=== PATIENT | male | born 1985 | race Two or more races ===

== ENCOUNTER 2021-01-10 13:47 | Outpatient (RCR) | payer MEDICARE, SELFPAY ==
--- NOTE | 2021-01-12 15:38 | MHC.PT.EP ---
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 Due to the pandemic he has not been as mobile and has been experiencing an increase in pain, decrease in function, and musculoskeletal impairments. pt presents to physical therapy with pain, decreased range of motion, decreased strength, impaired functional mobility, impaired postural awareness, and gait deviations. pt is a good candidate for skilled PT due to age, potential remediation of impairments, typical disease/condition progression and prognosis, comorbidities, and motivation. pt would benefit from tailored strengthening and stretching exercise program, functional training, gait training, postural re-training, neuromuscular re-education, modalities as needed for pain, and equipment safety demonstration. Frequency and Duration: The patient will be seen 2x/wk for 6 wks Short Term Goals: pt will be mod I w/ HEP to promote self-management of condition. pt will participate in standing trial to determine baseline standing endurance w/ LRAD. Ballet Master/Mistress Goals: pt will improve B hip flexion strength by 1 MMT grade to facilitate ease in supine to sit transfer w/ less UE assist to L LE. pt will report a statistically significant improvement in self-reported outcome measure, LEFI, to promote return to PLOF. Treatment Plan: Modalities to reduce pain, spasms and effusion. Manual therapy to restore motion and function. Therapeutic exercise to improve strength and flexibility. Neuromuscular re-education for posture and balance. Therapeutic activities to return to functional activities of daily living. Electronically signed by: Shikha Chance PT, DPT Please sign and return to therapist. Thank you for your referral.
--- NOTE | 2021-01-31 15:27 | MHC.PT.DC ---
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 Per [facility] Core Therapy policy, which the patient was aware of and signed, he is discharged from this physical therapy plan of care. Electronically signed by: Shikha Chance PT, DPT Please sign and return to therapist. Thank you for your referral.
== END 2021-01-31 15:28 | disposition other institution (70) ==
LOC: HO.PT 13:47
PROVIDERS: PCP Internal Medicine; Visit Provider Psychiatry & Neurology Neurology
DX: G82.20 Paraplegia, unspecified (principal)
CPT/HCPCS: 97110; 97162

== ENCOUNTER 2021-07-23 08:13 | Emergency (ER) | payer MEDICARE, SELFPAY ==
[2021-07-23 08:16] VITALS: BP 147/87; PULSE 107; RESP 18; TEMP 36.8; O2SAT 99; BMI 45.9
--- NOTE | 2021-07-23 08:42 | ED.EAR ---
HPI - Ear Problem General Chief complaint: Ear Problems Stated complaint: lt ear pain Time Seen by Provider: 07/23/21 08:28 Source: patient Mode of arrival: ambulatory Limitations: no limitations History of Present Illness Complaint: ear pain Location: left ear Duration: constant Severity: moderate Relieving factors: nothing Related Data Previous Rx's Medication Instructions Recorded amoxicillin 875 mg-potassium 1 tab PO Q12H #20 tab 07/23/21 clavulanate 125 mg tablet (Augmentin) oxycodone 5 mg capsule 5 mg PO Q8H PRN #12 cap 07/23/21 Allergies Allergy/AdvReac Type Severity Reaction Status Date / Time SHELLFISH Allergy Severe ANAPHYLAXIS Uncoded 06/17/20 17:10 Review of Systems Review of Systems: Yes all other systems are reviewed and are negative Constitutional: Constitutional: Reports no additional constitutional complaints Cardiovascular: Cardiovascular: Reports no additional cardiovascular complaints Respiratory: Respiratory: Reports no additional respiratory complaints Neurologic: Reports system reviewed and no additional complaints, except as documented Endocrine: Endocrine: Reports no additional endocrine complaints PMFSH Past Medical History Attestation statement: The following information was validated with the patient. Source: unable to obtain Social History Social History Advance Directives: No Physical Exam Vital Signs: Vital Signs: Last Vital Signs Temp 98.2 F 07/23/21 08:16 Pulse 107 H 07/23/21 08:16 Resp 18 07/23/21 08:16 BP 147/87 H 07/23/21 08:16 Pulse Ox 99 07/23/21 08:16 Body Mass Index 45.9 Const: General: cooperative, comfortable, no acute distress, well developed and awake Nutritional Appearance: well nourished Orientation/consciousness: patient oriented x3 HENMT: Head: Yes normal to inspection Ears: TM abnormal (Left TM red ,small perforation drum,minimall drainage) Face and sinus: Yes normal facial exam Mouth: Normal oral and palatal mucosa present Teeth and gingiva: dentition normal Neck: Neck: Yes normal visual inspection, Yes full ROM and Yes no lymphadenopathy Thyroid: Thyroid normal Carotids: normal carotid upstroke Lymphatic: no lymphadenopathy noted Chest: Chest palpation & inspection: normal inspection of the chest Resp: Effort & Inspection: normal respiratory effort Auscultation: clear to auscultation bilaterally Cardio: Jugular venous distension: no JVD Rate: regular rate Rhythm: regular rhythm GI: Inspection: Yes normal to inspection Palpation (GI): Soft to palpation, not firm and nontender Neuro: General: patient oriented x3 Discharge Plan Discharge Clinical Impression: Otitis media, Ear drum perforation Patient Disposition: Home, Self-Care Instructions: Ear Infection (ED) Additional Instructions: Follow-up with ear nose throat docto call On Sunday, return if you worse fever chills any concern Prescriptions: New amoxicillin-pot clavulanate [Augmentin] 875-125 mg tablet 1 tab PO Q12H Qty: 20 RF: 0 oxycodone 5 mg capsule 5 mg PO Q8H PRN (Reason: pain) Qty: 12 RF: 0 Referrals: Alfonso Nelson [Physician] - 2 days Interventions: ED Discharge Assessment Last Done: 07/23/21 09:28 Discharge Date/Time: 07/23/21 09:29
[2021-07-23] MEDS: Amoxicillin/Potassium Clav 875 MG TABLET PO (08:53)
[2021-07-23] MEDS: oxyCODONE HCl Immed Release 5 MG TABLET PO (08:53)
== END 2021-07-23 09:29 | disposition home or self-care (01) ==
PROVIDERS: Emergency Provider Emergency Medicine; PCP Internal Medicine
DX: H60.93 Unspecified otitis externa, bilateral (principal); H72.93 Unspecified perforation of tympanic membrane, bilateral; H92.02 Otalgia, left ear; Z79.899 Other long term (current) drug therapy
CPT/HCPCS: 99283

== ENCOUNTER 2023-03-27 09:46 | Emergency (ER) | payer MEDICARE, SELFPAY ==
--- NOTE | ~2023-03-27 | XR_ITS ---
EXAMINATION: XR FOOT, RIGHT CLINICAL INFORMATION: Swelling. Infection. COMPARISON: None available. TECHNIQUE: AP, lateral, and oblique views of the right foot. FINDINGS: The bones are osteopenic. No fracture or dislocation. No x-ray evidence of osteomyelitis. Mild degenerative changes at the first MTP joint with joint space narrowing. Soft tissue swelling of the midfoot. No abnormal air collection or soft tissue foreign body seen. Small calcaneal spur at the Achilles tendon insertion. XR/XR foot RT 2V IMPRESSION: Soft tissue swelling of the midfoot. No evidence of osteomyelitis.
--- NOTE | ~2023-03-27 | US_ITS ---
EXAMINATION: US VENOUS ULTRASOUND WITH DOPPLER LOWER EXTREMITY, RIGHT CLINICAL INFORMATION: Right leg swelling COMPARISON: 05/01/2018 TECHNIQUE: Ultrasound of the deep veins is performed from the hip to the calf with compression sonography and color and pulse Doppler assessment. Spectral analysis with color-flow imaging is performed. FINDINGS: There is normal venous compression and respiratory variation and augmented flow. The visualized common femoral vein, superficial femoral vein, profunda femoral vein, popliteal vein, posterior tibial vein show no evidence of deep venous thrombosis. Peroneal vein was not visualized. If the patient's symptoms persist, followup ultrasound in 5 days 7 days might be of value to exclude proximal propagation from a non-visualized calf vein. There is no significant popliteal fossa cyst. Enlarged, cortically thickened lymph nodes are seen in the right proximal thigh/groin, largest measuring 4.4 x 1.2 x 2.3 cm. US/US venous duplex LE RT IMPRESSION: No DVT demonstrated in the right lower extremity. Enlarged right groin lymph nodes, representing interval development from 2018. Follow-up as clinically indicated.
--- NOTE | ~2023-03-27 | XR_ITS ---
EXAMINATION: XR ANKLE, RIGHT CLINICAL INFORMATION: Right ankle swelling. COMPARISON: None available. TECHNIQUE: AP, lateral, and mortise views of the right ankle. FINDINGS: A lateral view was not obtained. The ankle joint and mortise appear intact. There is no overt fracture. Moderate soft tissue swelling is seen. XR/XR ankle RT 2V IMPRESSION: Limited study showing moderate soft tissue swelling without overt fracture.
[2023-03-27 09:51] VITALS: BP 158/91; PULSE 100; RESP 19; TEMP 36.6; O2SAT 94; BMI 31.0
[2023-03-27 10:06] LABS: MANUAL DIFF FLAG NO
[2023-03-27 10:07] LABS: Hematocrit 43.6 % (42.0-52.0); Hemoglobin 13.6 g/dl (14.0-18.0); Mean Corpuscular HGB Conc 31.2 g/dl (31.0-36.0); Mean Corpuscular Hemoglobin 27.3 pg (27.0-33.0); Mean Corpuscular Volume 87.4 fL (80.0-98.0); Mean Platelet Volume 11.4 fL (9.4-12.4); Platelet Count 255 X10*3/uL (160-400); Red Blood Count 4.99 X10*6/uL (4.60-5.80); Red Cell Distribution Width 14.5 % (11.0-16.0); White Blood Count 10.2 X10*3/uL (4.8-10.8)
[2023-03-27 10:08] LABS: Basophils Percent Auto 0.4 % (0-2); Eosinophils Absolute Auto 0.1 X10*3/uL (0.0-0.4); Eosinophils Percent Auto 1.1 % (0-4); Imm Gran Abs Auto 0.04 X10*3/uL (0.00-0.03); Imm Gran Pct Auto 0.4 % (0.0-0.4); Lymphocytes Absolute Auto 2.6 X10*3/uL (1.2-4.9); Lymphocytes Percent Auto 25.6 % (20-40); Monocytes Absolute Auto 0.6 X10*3/uL (0.1-1.2); Monocytes Percent Auto 5.6 % (2-11); Neutrophils Absolute Auto 6.8 x10*3/uL (2.0-8.3); Neutrophils Percent Auto 66.9 % (45-73)
[2023-03-27 10:37] LABS: Anion Gap 13 (12-20); Blood Urea Nitrogen 8 mg/dL (9-16); Calcium 9.3 mg/dL (8.4-10.2); Carbon Dioxide 25 mmol/L (22-29); Chloride 105 mmol/L (96-108); Creatinine Clr Calc Pharmacy 143.3; Estimated Glomerular Filt Rate > 60; Glucose Random 159 mg/dL (60-115); Potassium 4.1 mmol/L (3.3-5.1); Sodium 139 mmol/L (135-145)
--- NOTE | 2023-03-27 11:08 | ED.GENADULT ---
HPI - General Adult General Chief complaint: Wound/Laceration Stated complaint: R Foot Injury 4 Days Ago Time Seen by Provider: 03/27/23 12:56 Source: patient Mode of arrival: wheelchair Limitations: no limitations History of Present Illness HPI narrative: Patient Comes to the emergency room complaining of right foot pain and swelling. Patient states that approximately 4 days ago, patient accidentally hit his right foot with a door. Patient is paraplegic and has no sensation. Patient states that he noticed erythema on the dorsum of the foot 3 days ago, has been applying [id number] triple antibiotic, but the erythema keep spreading. Patient denies fever chills. Related Data Previous Rx's Medication Instructions Recorded amoxicillin 875 mg-potassium 1 tab PO Q12H #20 tabs 07/23/21 clavulanate 125 mg tablet (Augmentin) oxycodone 5 mg capsule 5 mg PO Q8H PRN pain #12 caps 07/23/21 cephalexin 500 mg capsule 500 mg PO BID #19 caps 03/27/23 doxycycline hyclate 100 mg capsule 100 mg PO BID #19 caps 03/27/23 Allergies Allergy/AdvReac Type Severity Reaction Status Date / Time SHELLFISH Allergy Severe ANAPHYLAXIS Uncoded 03/27/23 09:51 Review of Systems Review of Systems: Constitutional : No Weight loss, No Fever, No Chills, No Night Sweats, No Fatigue, No Malaise ENT/Mouth : No Hearing loss, No Ear Pain, No Nasal Congestion, No Sinus Pain, No Hoarseness, No sore throat, No Rhinorrhea, No Swallowing Difficulty Eyes: No Eye Pain, No Swelling, No Redness, No Foreign Body, No Discharge, No Vision Changes Cardiovascular : No Chest Pain, No SOB, No Dyspnea on Exertion, No Orthopnea, No Edema, No Palpitations Respiratory : No Cough, No Sputum, No Wheezing, No Smoke Exposure, No Dyspnea Gastrointestinal : No Nausea, No Vomiting, No Diarrhea, No Constipation, No abdominal Pain, No Hematochezia, No Melena Genitourinary : no irregular bleeding, No Dysuria, No Urinary Frequency, No Hematuria, No Urinary Incontinence, No Urgency, No Flank Pain, No Urinary Flow Changes, No Hesitancy Musculoskeletal : Paraplegic, at baseline Skin : Erythema and swelling on the dorsum of the foot on the right Neuro : No Weakness, No Numbness, No Paresthesias, No Loss of Consciousness, No Dizziness, No Headache Psych : No Anxiety/Panic, No Depression, No SI/HI/AH/VH, No Social Issues, Heme/Lymph: No Bruising, No Bleeding,No Lymphadenopathy Endocrine : No Polyuria, No Polydipsia, No Temperature Intolerance PMFSH Past Medical History Medical History Hyperlipidemia Hypertension Social History Social History Alcohol intake: never Smoked in Last 30 Days: No Use of substances other than those prescribed or required for medical reasons: Yes Substance Use Type: Marijuana Advance Directives: No Physical Exam ED Vital Signs: Vital Signs - 24 hr 03/27/23 09:51 03/27/23 11:47 03/27/23 12:00 Temperature 98 F 97.7 F 98.0 F Pulse Rate 100 96 84 Respiratory Rate 19 20 16 Blood Pressure 158/91 H 148/84 H 136/78 Pulse Oximetry 94 93 95 Oxygen Delivery Method Room Air Room Air Room Air BMI result Body Mass Index 31.0 Const Other: Appearance: Alert. Oriented X3. No acute distress. Eyes: Pupils equal, round and reactive to light. ENT: Pharynx normal. Neck: Normal inspection. Neck supple. No lymph nodes noted. No crepitus CVS: Normal heart rate and rhythm. Pulses normal. Normal S1 and S2 Respiratory: No respiratory distress. Breath sounds normal. No Wheezing. No rales Abdomen: Soft and nontender. No rigidity. No distention. Skin: Skin warm and dry. Patient has a 10 cm x 10 cm erythematous patch, draining serosanguineous fluid, surrounding erythema Extremities: No lower extremity edema. No Lacerations. No Rash Neuro: Oriented X 3. No motor deficit. No sensory deficit. Moving all extremities. No slurred speech. CN 2 through 12 grossly intact Psych: calm, cooperative, normal affect Course Course Course Narrative: This is an RME: Additional HPI, ROS, PE not included below will be deferred to primary provider. Patient is a 37-year-old male with history of paraplegia presenting with right lower extremity swelling, right foot wound after hitting his foot on the door at home four days ago. Unsure when drainage began. Denies fevers. Plan: Ordered labs including blood cultures, lactic, x-ray foot and ankle, RLE ultrasound. Medications Administered Discontinued Medications Generic Name Dose Route Start Last Admin Trade Name Anam PRN Reason Stop Dose Admin Cephalexin HCl 500 mg 03/27/23 13:20 03/27/23 13:54 Cephalexin 500 Mg Capsule PO 03/27/23 13:21 500 mg ONCE ONE Administration Doxycycline Monohydrate 100 mg 03/27/23 13:20 03/27/23 13:54 Doxycycline Monohydrate 100 Mg Capsule PO 03/27/23 13:21 100 mg ONCE ONE Administration Medical Decision Making Medical Decision Making [facility] Narrative: -patient's white blood cell count and lactic acid within normal limits, no fever, sepsis not suspected. -patient given p.o. cephalexin and doxycycline -ultrasound reports of the right lower extremity pending -patient's ultrasound is negative for DVT, patient has cellulitis. Patient will try p.o. antibiotics, instructed that if the skin infection gets worse, to return to the emergency room. Patient will also follow-up with the wound clinic Differential Diagnosis Differential Diagnoses: The differential diagnosis associated with the presentation includes (Cellulitis, DVT, chronic wounds) Lab Data [facility] Lab Attestation statement: I reviewed the patient's lab results. 03/27/23 10:02 03/27/23 10:02 Labs: Lab Results 03/27/23 03/27/23 03/27/23 Range/Units 10:02 10:02 11:16 WBC 10.2 (4.8-10.8) X10*3/uL RBC 4.99 (4.60-5.80) X10*6/uL Hgb 13.6 L (14.0-18.0) g/dl Hct 43.6 (42.0-52.0) % MCV 87.4 (80.0-98.0) fL MCH 27.3 (27.0-33.0) pg MCHC 31.2 (31.0-36.0) g/dl RDW 14.5 (11.0-16.0) % Plt Count 255 (160-400) X10*3/uL MPV 11.4 (9.4-12.4) fL Immature Gran % (Auto) 0.4 (0.0-0.4) % Neut % (Auto) 66.9 (45-73) % Lymph % (Auto) 25.6 (20-40) % [place] % (Auto) 5.6 (2-11) % Eos % (Auto) 1.1 (0-4) % Baso % (Auto) 0.4 (0-2) % Lymph # (Auto) 2.6 (1.2-4.9) X10*3/uL [place] # (Auto) 0.6 (0.1-1.2) X10*3/uL Eos # (Auto) 0.1 (0.0-0.4) X10*3/uL Baso # (Auto) 0.0 (0.0-0.2) X10*3/uL Abs Immat Gran (auto) 0.04 H (0.00-0.03) X10*3/uL Absolute Neuts (auto) 6.8 (2.0-8.3) x10*3/uL Absolute Nucleated RBC 0.000 (0.0-0.012) X10*3/uL Nucleated RBC % (auto) 0.0 (0.0-0.2) /100WBC Sodium 139 (135-145) mmol/L Potassium 4.1 (3.3-5.1) mmol/L Chloride 105 (96-108) mmol/L Carbon Dioxide 25 (22-29) mmol/L Anion Gap 13 (12-20) BUN 8 L (9-16) mg/dL Creatinine 0.82 (0.5-1.4) mg/dL Estim Creat Clear Calc 143.3 Estimated GFR > 60 Random Glucose 159 H (60-115) mg/dL Lactic Acid 1.5 (0.5-2.0) mmol/L Calcium 9.3 (8.4-10.2) mg/dL B-Natriuretic Peptide (<100) pg/mL 03/27/23 Range/Units 11:16 WBC (4.8-10.8) X10*3/uL RBC (4.60-5.80) X10*6/uL Hgb (14.0-18.0) g/dl Hct (42.0-52.0) % MCV (80.0-98.0) fL MCH (27.0-33.0) pg MCHC (31.0-36.0) g/dl RDW (11.0-16.0) % Plt Count (160-400) X10*3/uL MPV (9.4-12.4) fL Immature Gran % (Auto) (0.0-0.4) % Neut % (Auto) (45-73) % Lymph % (Auto) (20-40) % [place] % (Auto) (2-11) % Eos % (Auto) (0-4) % Baso % (Auto) (0-2) % Lymph # (Auto) (1.2-4.9) X10*3/uL [place] # (Auto) (0.1-1.2) X10*3/uL Eos # (Auto) (0.0-0.4) X10*3/uL Baso # (Auto) (0.0-0.2) X10*3/uL Abs Immat Gran (auto) (0.00-0.03) X10*3/uL Absolute Neuts (auto) (2.0-8.3) x10*3/uL Absolute Nucleated RBC (0.0-0.012) X10*3/uL Nucleated RBC % (auto) (0.0-0.2) /100WBC Sodium (135-145) mmol/L Potassium (3.3-5.1) mmol/L Chloride (96-108) mmol/L Carbon Dioxide (22-29) mmol/L Anion Gap (12-20) BUN (9-16) mg/dL Creatinine (0.5-1.4) mg/dL Estim Creat Clear Calc Estimated GFR Random Glucose (60-115) mg/dL Lactic Acid (0.5-2.0) mmol/L Calcium (8.4-10.2) mg/dL B-Natriuretic Peptide < 10 (<100) pg/mL Independent Interpretation I performed an independent interpretation of an: Ultrasound Interpretation: My interpretation of duplex venous ultrasound of right lower extremity: No DVT Radiology Impression Discussion of test interpretation with radiology: I have reviewed the radiologist's reading. Radiologist Impression: FINDINGS: There is normal venous compression and respiratory variation and augmented flow. The visualized common femoral vein, superficial femoral vein, profunda femoral vein, popliteal vein, posterior tibial vein show no evidence of deep venous thrombosis.? Peroneal vein was not visualized. If the patient's symptoms persist, followup ultrasound in 5 days 7 days might be of value to exclude proximal propagation from a non-visualized calf vein. There is no significant popliteal fossa cyst. Enlarged, cortically thickened lymph nodes are seen in the right proximal thigh/groin, largest measuring 4.4 x 1.2 x 2.3 cm. US/US venous duplex LE RT IMPRESSION: No DVT demonstrated in the right lower extremity. Enlarged right groin lymph nodes, representing interval development from 2018. Follow-up as clinically indicated. Discharge Plan Discharge Clinical Impression: Cellulitis Patient Disposition: Home, Self-Care Instructions: Cellulitis (ED) Additional Instructions: Please follow-up with your primary care physician tomorrow. If you have any worsening or new symptoms, please return to the emergency room or call 911 Prescriptions: New cephalexin 500 mg capsule 500 mg PO BID Qty: 19 0RF doxycycline hyclate 100 mg capsule 100 mg PO BID Qty: 19 0RF No Action amoxicillin-pot clavulanate [Augmentin] 875-125 mg tablet 1 tab PO Q12H Qty: 20 0RF oxycodone 5 mg capsule 5 mg PO Q8H PRN (Reason: pain) Qty: 12 0RF Referrals: Marisol Gonzáles MD [Physician] -
[2023-03-27 11:47] VITALS: BP 148/84; PULSE 96; RESP 20; TEMP 36.5; O2SAT 93
[2023-03-27 11:54] LABS: Lactic Acid 1.5 mmol/L (0.5-2.0)
[2023-03-27 12:00] VITALS: BP 136/78; PULSE 84; RESP 16; TEMP 36.7; O2SAT 95
[2023-03-27 12:02] LABS: B Type Natriuretic Peptide < 10 pg/mL (<100)
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
[2023-03-27] MEDS: Doxycycline Monohydrate 100 MG CAPSULE PO (13:54)
[2023-03-27] MEDS: cephALEXin 500 MG CAPSULE PO (13:54)
--- NOTE | 2023-03-27 13:54 | PC.NURSE ---
pt medicated with abx per order
[2023-03-27 14:00] VITALS: BP 117/69; PULSE 79; RESP 16; TEMP 36.6; O2SAT 96
--- NOTE | 2023-03-27 14:36 | PC.NURSE ---
pt alert and oriented, vss, pt states that his pain decreased to a 6/10, pt in no apparent distress, call dasilva within reach, will continue to monitor.
== END 2023-03-27 15:27 | disposition home or self-care (01) ==
PROVIDERS: Registered Nurse Emergency; Emergency Provider Emergency Medicine; PCP Internal Medicine
DX: L03.115 Cellulitis of right lower limb (principal); M25.571 Pain in right ankle and joints of right foot; R06.02 Shortness of breath; R60.0 Localized edema; Z79.899 Other long term (current) drug therapy
CPT/HCPCS: 36415; 73600; 73620; 73630; 80048; 83605; 83880; 85025; 87040; 93971; 99284

== ENCOUNTER 2023-04-05 13:31 | Outpatient (RCR) | payer MEDICARE, SELFPAY | END 2023-04-13 09:32 | disposition home or self-care (01) | LOC: HO.WCC 13:31 | PROVIDERS: Visit Provider Surgery | DX: I87.331 Chronic venous hypertension (idiopathic) with ulcer and inflammation of right lower extremity (principal); L97.512 Non-pressure chronic ulcer of other part of right foot with fat layer exposed; L03.115 Cellulitis of right lower limb; G82.22 Paraplegia, incomplete; I10 Essential (primary) hypertension; R73.03 Prediabetes; Z79.2 Long term (current) use of antibiotics; Z87.891 Personal history of nicotine dependence | CPT/HCPCS: 11042; 11045; 99212 ==

== ENCOUNTER 2024-06-19 14:00 | Outpatient (RCR) | payer MEDICARE, SELFPAY ==
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
--- NOTE | 2024-07-15 12:28 | MHC.PT.DC ---
[facility] [place] Office [place] Office [place] Office [address] Abdullahi Almonte [address] [phone] F: [phone] F: [phone] F: [phone] F: [phone] Physical Therapy Discharge Report Diagnosis: SPINAL CORD INJURY (INCOMPLETE L2) Date of Surgery: NA Date of Evaluation: 03/28/24 Date of Discharge: 07/15/24 Treatments to Date: 13 Cancellations to Date: No Shows to Date: Discharge Status: Improved Function Independent with HEP Patient Elected to Stop Recommend MD Follow-up Discharge Summary: PER LAST VISIT WITH JASON RICHMOND PT, DPT Ivan has made progress with UE/LE strengthening and has been working on monitoring his own HR with cardio activities to maintain optimal intensity for weight loss. He has progressed to up to ~50 seconds of supported standing in //. His L hip flex strength has improved from 4/5 to 4+/5. His R hip flex strength has improved from 3-/5 to 3/5. He would benefit from continued skilled PT to continue to work on monitoring and maintaining optimal HR to promote weight loss to be able to walk with B HKAFO braces (which are being fabricated for him through [employer]), to increase B hip flexor muscle length to be able to stand upright to wear braces, to continues UE/LE strengthening to allow him to complete ADL's and stand. Pt THEN NO SHOWED X 2. THIS PT CALLED Pt ON 07/15 TO ? CONT/DC PT. HE REPORTS HE IS GETTING HIS BRACES FIXED/FIT NEXT SUNDAY. HE WILL CALL AFTER/WHEN READY TO RESTART PT WITH NEW REFERRAL Electronically signed by: SOLITARIO ALMEIDA PT Please sign and return to therapist. Thank you for your referral.
== END 2024-07-15 12:30 | disposition home or self-care (01) ==
LOC: HO.PT 14:00
PROVIDERS: PCP Internal Medicine; Visit Provider Psychiatry & Neurology Neurology
DX: S34.102D Unspecified injury to L2 level of lumbar spinal cord, subsequent encounter (principal)
CPT/HCPCS: 97110; 97112; 97162; 97164; 97530; 97535

== ENCOUNTER 2025-04-09 13:00 | Outpatient (RCR) | payer OTHER, SELFPAY | END 2025-09-18 15:20 | disposition home or self-care (01) | LOC: HO.PT 13:00 | PROVIDERS: PCP Internal Medicine; Visit Provider Physician Assistant | DX: G82.20 Paraplegia, unspecified (principal); G62.9 Polyneuropathy, unspecified | CPT/HCPCS: 97110; 97116; 97140; 97163; 97530 ==